=== PATIENT | male | born 1955 | race African-American/Black ===

== ENCOUNTER 2018-12-20 06:14 | Emergency (ER) | payer OTHER, SELFPAY | END 2018-12-20 06:51 | disposition home or self-care (01) | LOC: MADERS 06:14 | DX: L25.9 Unspecified contact dermatitis, unspecified cause (principal); I10 Essential (primary) hypertension; L08.9 Local infection of the skin and subcutaneous tissue, unspecified; F17.210 Nicotine dependence, cigarettes, uncomplicated | CPT/HCPCS: 99282 ==

== ENCOUNTER 2020-03-02 21:46 | Emergency (ER) | payer SELFPAY ==
[2020-03-02] MEDS ORDERED: Sulfameth/Trimethoprim DS 800-160mg TAB ONE (22:13)
[2020-03-02] MEDS ORDERED: Lidocaine 1% w/Epinephrine 1:100K 20 ML VIAL ONE (22:17)
== END 2020-03-02 22:42 | disposition home or self-care (01) ==
LOC: MADERS 21:46
DX: L03.111 Cellulitis of right axilla (principal); B02.9 Zoster without complications; F17.210 Nicotine dependence, cigarettes, uncomplicated
CPT/HCPCS: 10061

== ENCOUNTER 2021-07-18 21:12 | Emergency (ER) | payer SELFPAY ==
[2021-07-18] MEDS ORDERED: Acyclovir 200 mg Capsule ONE (21:33)
== END 2021-07-18 21:43 | disposition home or self-care (01) ==
LOC: MADERS 21:12
DX: L50.0 Allergic urticaria (principal); B02.9 Zoster without complications; F17.210 Nicotine dependence, cigarettes, uncomplicated
CPT/HCPCS: 99282